=== PATIENT | male | born 1990 | race Caucasian/White ===

== ENCOUNTER 2018-09-17 10:03 | Emergency (ER) | payer SELFPAY ==
[2018-09-17] MEDS ORDERED: KETOROLAC TROMETHAMINE 60 MG/2 ML SDV IM ONE (11:12)
--- NOTE | 2018-09-17 11:15 | ER Document Report ---
HPI - HPI Time Seen by Provider: 09/17/18 10:28 Pain Level: 3 Notes: Patient is a 27-year-old male who presents to the emergency department with chief complaint of bilateral foot pain that is been ongoing for approximately 10 years. Patient denies seeking treatment for this previously. He denies any injury to the area. He reports that the bottom of his feet feel like he is walking on glass and pins and needles every morning when he wakes up. He states this improves over the day. He reports that there is redness and erythema to the area. Past Medical History - General Information source: Patient - Social History Smoking Status: Current Every Day Smoker Family History: Reviewed & Not Pertinent Patient has suicidal ideation: No Patient has homicidal ideation: No - Medical History Medical History: Negative Renal/ Medical History: Denies: Hx Peritoneal Dialysis Surgical Hx: Negative - Immunizations Hx Diphtheria, Pertussis, Tetanus Vaccination: Yes Vertical Provider Document - CONSTITUTIONAL Notes: PHYSICAL EXAMINATION: GENERAL: Well-appearing, well-nourished and in no acute distress. HEAD: Atraumatic, normocephalic. EYES: Pupils equal round extraocular movements intact, conjunctiva are normal. ENT: Nares patent NECK: Normal range of motion LUNGS: No respiratory distress Musculoskeletal: Normal range of motion, normal dorsalis pedis pulses bilaterally. NEUROLOGICAL: Normal speech, normal gait. PSYCH: Normal mood, normal affect. SKIN: Warm, Dry, normal turgor, well demarcated erythema noted to bilateral feet on the plantar surfaces. Normal cap refill, normal motor and sensation. - INFECTION CONTROL TRAVEL OUTSIDE OF THE [place] IN LAST 30 DAYS: No Course - Re-evaluation Re-evalutation: Imaging not indicated at this time as patient has not had any trauma to the area. Dr. Grant was brought to the bedside to evaluate the patient. His recommendation is to refer to the patient to podiatry. Patient declines need for pain medication at this time. - Vital Signs Vital signs: Temp Pulse Resp BP Pulse Ox 98.5 F 60 14 119/66 100 09/17/18 10:09 09/17/18 10:09 09/17/18 10:09 09/17/18 10:09/17/18 10:09 Discharge - Discharge Clinical Impression: Bilateral foot pain Condition: Stable Disposition: HOME, SELF-CARE Additional Instructions: We are unsure what exactly is causing your foot pain. I think it would be most appropriate to have you follow-up with a probe operator who is a foot doctor, they specialize in foot care. I have enclosed in their contact information, please call them to schedule an appointment. You are given a shot of Toradol today in the emergency department which is an anti-inflammatory. If this helps with your pain you may want to consider taking ibuprofen 600 mg every 6 hours for pain and inflammation. Referrals: MIMI BURGER DPM [ACTIVE STAFF] - Follow up as needed
[2018-09-17 11:32] VITALS: BP 120/68
== END 2018-09-17 11:30 | disposition home or self-care (01) ==
LOC: ER 10:03
DX: M79.671 Pain in right foot (principal); M79.672 Pain in left foot; F17.200 Nicotine dependence, unspecified, uncomplicated
CPT/HCPCS: 99283